=== PATIENT | female | born 1995 | race Caucasian/White ===

== ENCOUNTER 2016-08-24 18:17 | Observation (INO) | payer OTHER ==
[2016-08-24] MEDS ORDERED: FAMOTIDINE 20 MG/2 ML SDV IVP ONE (18:46)
[2016-08-24] MEDS ORDERED: methylPREDNISolone SOD SUCC 125 MG/2 ML VIAL IVP ONE (18:46)
[2016-08-24] MEDS ORDERED: NS 1,000 ML IV ONE ×2 (18:47→21:40)
--- NOTE | 2016-08-24 18:55 | EDPHY ---
H & P Stated Complaint: possible allergic reaction Source: Patient, Family Exam Limitations: No limitations - Personal History LMP (Females 10-55): 1-7 Days Ago Current Tetanus/Diphtheria Vaccine: Yes Current Tetanus Diphtheria and Acellular Pertussis (TDAP): Yes - Medical/Surgical History Hx Asthma: No Hx Chronic Respiratory Disease: No Hx Diabetes: No Hx Cardiac Disease: No Hx Renal Disease: No Hx Cirrhosis: No Hx Alcoholism: No Hx HIV/AIDS: No Hx Splenectomy or Spleen Trauma: No Other PMH: anxiety - Social History Smoking Status: Never smoked HPI/ROS: CHIEF COMPLAINT: Rash, possible allergic reaction HISTORY OF PRESENT ILLNESS: Patient has a painful and pruritic rash all over that started today after taking Bactrim. She has been on Bactrim intermittently this month, reportedly for chronic Lyme disease treatment by a naturopathic physician. She reports having multiple episodes of drug intolerance including vomiting, GI discomfort and mild rash in the past. She has never had this level of rash, which she describes as severe, pruritic and painful. She has no swelling of the lips or tongue. No swelling of the eyes. No difficulty breathing. She does take multiple other supplements from her naturopathic physician. Is also on rifampin intermittently over the past month. No other associated complaints or modifying factors. REVIEW OF SYSTEMS: Ten systems reviewed and are negative unless otherwise noted in the HPI PERTINENT MEDICAL HISTORY: reviewed EXAMINATION General Appearance: Alert, no distress Head: normocephalic, atraumatic Eyes: Pupils equal and round, no conjunctival pallor or injection ENT, Mouth: Mucous membranes moist. airway widely patent. No edema of tongue or lips. No mucosal abnormalities or sloughing of the skin. Uvula midline. Neck: Normal inspection, supple, non-tender Respiratory: Lungs are clear to auscultation. No wheezing, rhonchi or crackles. Cardiovascular: Tachycardic rate. Regular rhythm. Pulses intact distally symmetrically Gastrointestinal: Abdomen is soft and nontender Back: non-tender, no bony abnormalities Neurological: A&O, nonfocal, normal gait Skin: Warm and dry. There is erythematous rash on her cheeks, neck, trunk, back, arms and legs. There is no involvement of the eyes or eyelids. There is no sloughing or desquamation at any site. No abnormality of the oral mucosa. Extremities: Nontender, no pedal edema Psychiatric: Mood and affect normal DIFFERENTIAL DIAGNOSES: Including but not limited to drug allergy, Bactrim allergy, drug intolerance, acute allergic reaction, TEN, Rosas Yaakov syndrome MDM: 6:45 p.m. Possible allergic reaction to Bactrim. The patient does have a rash globally. There is no desquamation or sloughing of the skin at any site. Airway is widely patent. I have ordered Solu-Medrol, Benadryl and Pepcid as well as IV fluid resuscitation. I will continue to monitor. 7:43 p.m. I have re-evaluated the patient. She was feeling minimally better for a while but has started to feel worse. While I was in the room her heart rate was 125 to 140. Her airway remains widely patent. There remains no swelling of the lips or tongue. We are obtaining an EKG and I will administer 1 mg of Ativan. I will consult Dr. De La Garza to evaluate the patient in person. 8:10 p.m. Patient is feeling no better at this time. She remains tachycardic with a heart rate of 130 beats per minute. Ativan has not helped. She still feeling a burning sensation all over. I have ordered a dose of pain medication and will proceed with admission for observation. 8:14 p.m. I discussed the case with Dr. Shafer. He will admit the patient to observation. The patient is comfortable this plan. She is admitted tachycardic but in stable condition. SUPERVISION: Patient was evaluated in conjunction with the supervising physician. Please see their note for details. Patient evaluated by Dr. De La Garza ([facility]) Constitutional: Initial Vital Signs Temperature (C) 97.3 F 08/24/16 18:19 Heart Rate 114 H 08/24/16 18:19 Respiratory Rate 16 08/24/16 18:19 Blood Pressure 127/79 H 08/24/16 18:19 O2 Sat (%) 95 08/24/16 18:19 O2 Delivery Mode Nasal Cannula O2 (L/minute) 2 Allergies/Adverse Reactions: amoxicillin Allergy (Unknown, Verified 07/10/14 12:25) erythromycin base [From E-Mycin] Allergy (Unknown, Verified 07/10/14 12:25) Penicillins Allergy (Unknown, Verified 07/10/14 12:25) Home Medications: Medication Instructions Recorded Herbals/Supplements -Info Only 1 ea PO DAILY 08/24/16 Naproxen Sodium [Aleve 220 MG (*)] 220 - 440 mg PO DAILY PRN 08/24/16 Rifampin [Rifadin 300mg (*)] 300 mg PO BID 08/24/16 Sulfamethox/Tmp 800/160 mg 1 tab PO BID 08/24/16 [Bactrim Ds] diphenhydrAMINE [Benadryl 25 MG 25 - 50 mg PO DAILY PRN 08/24/16 (*)] Medical Decision Making Other Provider: 1954: Evaluated this patient in conjunction with REVA Wolfe. This is a 20 y/o female who presents with a diffuse pruritic rash and throat tightness after taking Bactrim today. She has received 125mg IV Solumedrol, 50mg IV Benadryl, 20mg IV Pepcid, 1mg IV Ativan, and 1L IV NS. She tells me she improved initially after treatment, but she now feels worse. Her rash has improved, but she continues to complain of burning and itching particularly along her legs. Her HR is currently 135. She has some mild tongue swelling and diffuse erythema on exam. No mucous membrane involvement or desquamation. (Regis De La Garza) - Data Points Laboratory Results: Laboratory Results 08/24/16 18:56 08/24/16 18:56 Medications Given: Discontinued Medications Hydrocodone Bitart/Acetaminophen ([place] 5/325) 1 - 2 tab PO Q4HRS PRN PRN Reason: Pain, Moderate Able to Take PO Stop: 09/03/16 21:31 Last Admin: 08/25/16 09:25 Dose: 2 tab Diphenhydramine HCl (Benadryl Injection) 50 mg IVP EDNOW ONE Stop: 08/24/16 18:58 Last Admin: 08/24/16 19:02 Dose: 50 mg Diphenhydramine HCl (Benadryl) 25 mg PO Q6 URBAN Stop: 02/21/17 00:00 Last Admin: 08/25/16 05:46 Dose: 25 mg Famotidine (Pepcid) 20 mg IVP EDNOW ONE Stop: 08/24/16 18:47 Last Admin: 08/24/16 19:02 Dose: 20 mg Fentanyl (Sublimaze) 100 mcg IVP EDNOW ONE Stop: 08/24/16 20:10 Last Admin: 08/24/16 20:15 Dose: 100 mcg Sodium Chloride (Ns) 1,000 mls @ 0 mls/hr IV ONCE ONE PRN Reason: Wide Open Stop: 08/24/16 18:48 Last Admin: 08/24/16 19:02 Dose: 1,000 mls Famotidine/Sodium Chloride (Pepcid 20 Mg (Premix)) 50 mls @ 200 mls/hr IV Q12HRS URBAN Stop: 02/21/17 08:59 Last Admin: 08/25/16 07:59 Dose: 50 mls Sodium Chloride (Ns) 1,000 mls @ 150 mls/hr IV CONT URBAN Stop: 02/20/17 21:44 Last Admin: 08/25/16 05:46 Dose: 1,000 mls Sodium Chloride (Ns) 1,000 mls @ 0 mls/hr IV ONCE ONE PRN Reason: Wide Open Stop: 08/24/16 21:41 Last Admin: 08/24/16 21:55 Dose: 1,000 mls Lorazepam (Ativan Injection) 1 mg IVP EDNOW ONE Stop: 08/24/16 19:44 Last Admin: 08/24/16 19:55 Dose: 1 mg Lorazepam (Ativan Injection) 1 mg IVP Q4HRS PRN PRN Reason: Anxiety, Unable to Take PO Stop: 02/21/17 01:47 Last Admin: 08/25/16 02:10 Dose: 1 mg Methylprednisolone Sodium Succinate (Solu-Medrol) 125 mg IVP EDNOW ONE Stop: 08/24/16 18:47 Last Admin: 08/24/16 19:02 Dose: 125 mg Methylprednisolone Sodium Succinate (Solu-Medrol) 60 mg IVP Q6HRS URBAN Stop: 02/21/17 00:00 Last Admin: 08/25/16 05:46 Dose: 60 mg Morphine Sulfate (Morphine) 2 mg IVP Q4HRS PRN PRN Reason: Pain, Severe Unable to Take PO Stop: 09/03/16 22:57 Last Admin: 08/24/16 23:13 Dose: 2 mg Departure - Departure Disposition: [facility] Clinical Impression: Tachycardia Allergic reaction Qualifiers: Encounter type: initial encounter Qualified Code(s): T78.40XA - Allergy, unspecified, initial encounter Condition: Fair
[2016-08-24 19:14] LABS: % IMMATURE GRANULYOCYTES 2.8 % (0.0-1.1); ABSOLUTE IMMATURE GRANULOCYTES 0.11 10^3/uL (0.00-0.10); ADD DIFF? NO; ADD MORPH? NO; ADD SCAN? NO; ATYPICAL LYMPHOCYTE FLAG 10 (0-99); FRAGMENT RBC FLAG 0 (0-99); HEMATOCRIT 40.1 % (38.0-47.0); HEMOGLOBIN 14.1 g/dL (12.6-16.3); LEFT SHIFT FLG 20 (0-99); LIPEMIA HEMOLYSIS FLAG 90 (0-99); MEAN CELL HEMOGLOBIN 31.4 pg (27.9-34.1); MEAN CELL HEMOGLOBIN CONCENTR. 35.2 g/dL (32.4-36.7); MEAN CELL VOLUME 89.3 fL (81.5-99.8); MEAN PLATELET VOLUME 9.5 fL (8.7-11.7); PLATELET CLUMPS FLAG 0 (0-99); PLATELET COUNT 390 10^3/uL (150-400); RED BLOOD CELL COUNT 4.49 10^6/uL (4.18-5.33); RED CELL DISTRIBUTION WIDTH 11.1 % (11.5-15.2)
[2016-08-24] MEDS ORDERED: LORazepam 2 MG/ML INJ IVP ONE (19:43)
[2016-08-24] MEDS ORDERED: LORazepam 2 MG/ML INJ ONE (19:44)
[2016-08-24 19:45] LABS: ANION GAP 15 mEq/L (8-16); C-REACTIVE PROTEIN 10.5 mg/L (<10.0); CALCIUM 9.5 mg/dL (8.5-10.4); CARBON DIOXIDE 21 mEq/l (22-31); CHLORIDE 101 mEq/L (97-110); CREATININE 0.8 mg/dL (0.6-1.0); GLOMERULAR FILTRATION RATE > 60; GLUCOSE 87 mg/dL (70-100); POTASSIUM 4.1 mEq/L (3.5-5.2); SEDIMENTATION RATE 10 MM/HR (0-20); SODIUM 137 mEq/L (134-144)
--- NOTE | 2016-08-24 19:48 | CPEKG ---
Heart Rate: 131 RR Interval: 458 P-R Interval: 148 QRSD Interval: 78 QT Interval: 308 QTC Interval: 455 P [place]: 63 QRS [place]: 43 T Wave [place]: -69 EKG Severity - ABNORMAL ECG - EKG Impression: SINUS TACHYCARDIA EKG Impression: PROBABLE LEFT ATRIAL ABNORMALITY EKG Impression: ABNORMAL T, CONSIDER ISCHEMIA, DIFFUSE LEADS Electronically Signed By: Regis De La Garza 24-Aug-2016 22:49:54
[2016-08-24] MEDS ORDERED: fentaNYL 100 MCG/2 ML INJ IVP ONE (20:09)
[2016-08-24] MEDS ORDERED: ONDANSETRON DISINTEGRATING 4 MG TAB PO PRN (21:32)
[2016-08-24] MEDS ORDERED: ONDANSETRON 4 MG/2 ML VIAL IVP PRN (21:32)
[2016-08-24] MEDS ORDERED: TEMAZEPAM 15 MG CAP PO PRN (21:32)
[2016-08-24] MEDS: HYDROCODONE/APAP 5/325 TAB PO PRN (21:56)
--- NOTE | 2016-08-24 22:59 | GHP ---
[f rep st] HISTORY AND PHYSICAL DATE OF ADMISSION: 08/24/2016 CHIEF COMPLAINT: Rash. HISTORY OF PRESENT ILLNESS: This is a 20-year-old female who a couple years ago had fairly sudden o nset of joint pain, rashes, extreme fatigue and brain fog. She saw multiple specialists and maxine kempy she was thought to have Lyme disease. She has been treated with rotating antibiotics since then and has actually improved a good amount although not back to baseline. She was started on Bactrim and rifampin several weeks ago but even from the beginning had problems with vomiting and even a lit tle bit of a rash. She has been taking it on and off and tried to take it more consistently the t week. She has developed a rash though that worsened today involved her face. She also has some j oint pain. She has had nausea and vomiting. She also had fevers. She denies any mouth ulcerations or sloughing of her skin. REVIEW OF SYSTEMS: A 10-point review of systems was obtained and, other than stated above, was nega tive. PAST MEDICAL HISTORY: Possible Lyme disease on antibiotics. SOCIAL HISTORY: No smoking or alcohol. Lives with the mother. FAMILY HISTORY: Reviewed. Noncontributory. PHYSICAL EXAMINATION: VITAL SIGNS: Afebrile. Blood pressure is 119/65, heart rate in the 1-teens t o 120s. Oxygen saturation 99% on 2 L. GENERAL: The patient is well developed. No apparent distres s. HEENT: Nonicteric sclerae. Extraocular muscles intact. No oral lesions, although tongue is lit tle bit swollen. There is erythema of her face and some edema. NECK: Supple. No thyromegaly. YAYA GS: Good effort. Clear to auscultation bilaterally. CARDIOVASCULAR: Tachycardic. No murmurs, rubs or gallops. ABDOMEN: Positive bowel sounds. Soft, nontender, nondistended. No hepatosplenomegal y. EXTREMITIES: No clubbing, cyanosis, or edema. I am not seeing a lot in terms of synovitis. NE UROLOGIC: Alert and oriented x3. Moving all 4 extremities equally. PSYCH: Normal affect. LABORATORY DATA: CBC is normal. Beta HCG is negative. Chemistry is negative. ASSESSMENT: This is a 20-year-old female, presenting with allergic reaction, most likely to Bactrim . 1. Allergic reaction. She does have significant rash and some vasodilation and swelling. She does not have any respiratory symptoms. She does have some tachycardia, although her blood pressure rem ains in the normal range. The plan will be to continue her with Solu-Medrol, Pepcid, and Benadryl. We will give her more fluid to see if that might counteract some of the vasodilation. Obviously we will hold her antibiotics. 2. Possible Lyme disease that seems to be getting better with some of the antibiotics. 3. Admission. Patient will be admitted observation status. Case discussed with emergency room diogenes ochoa. /[id number]/MODL
[2016-08-24] MEDS: diphenhydrAMINE 25 MG CAP PO SCH (23:36)
[2016-08-24] MEDS: methylPREDNISolone SOD SUCC 125 MG/2 ML VIAL IVP SCH (23:36)
[2016-08-24] MEDS: NS 1,000 ML IV SCH (23:40)
[2016-08-25] MEDS ORDERED: LORazepam 2 MG/ML INJ IVP PRN (01:48)
[2016-08-25] MEDS: hydrOXYzine HCL 25 MG TAB PO PRN ×2 (02:10→12:29)
[2016-08-25 05:35] LABS: ADD DIFF? YES; ADD MORPH? NO; ADD SCAN? NO; ATYPICAL LYMPHOCYTE FLAG 0 (0-99); FRAGMENT RBC FLAG 0 (0-99); HEMATOCRIT 33.4 % (38.0-47.0); HEMOGLOBIN 11.5 g/dL (12.6-16.3); LEFT SHIFT FLG 50 (0-99); LIPEMIA HEMOLYSIS FLAG 90 (0-99); MEAN CELL HEMOGLOBIN 31.4 pg (27.9-34.1); MEAN CELL HEMOGLOBIN CONCENTR. 34.4 g/dL (32.4-36.7); MEAN CELL VOLUME 91.3 fL (81.5-99.8); MEAN PLATELET VOLUME 9.6 fL (8.7-11.7); PLATELET CLUMPS FLAG 0 (0-99); PLATELET COUNT 322 10^3/uL (150-400); RED BLOOD CELL COUNT 3.66 10^6/uL (4.18-5.33); RED CELL DISTRIBUTION WIDTH 11.2 % (11.5-15.2)
[2016-08-25] MEDS: diphenhydrAMINE 25 MG CAP PO SCH (05:46)
[2016-08-25] MEDS: NS 1,000 ML IV SCH (05:46)
[2016-08-25] MEDS: methylPREDNISolone SOD SUCC 125 MG/2 ML VIAL IVP SCH (05:46)
[2016-08-25 05:58] LABS: ANION GAP 9 mEq/L (8-16); CALCIUM 8.7 mg/dL (8.5-10.4); CARBON DIOXIDE 22 mEq/l (22-31); CHLORIDE 110 mEq/L (97-110); CREATININE 0.7 mg/dL (0.6-1.0); GLOMERULAR FILTRATION RATE > 60; GLUCOSE 124 mg/dL (70-100); POTASSIUM 4.6 mEq/L (3.5-5.2); SODIUM 141 mEq/L (134-144)
[2016-08-25 06:33] LABS: PLATELET ESTIMATE ADEQUATE (ADEQ)
[2016-08-25] MEDS: ACETAMINOPHEN 325 MG TAB PO PRN ×2 (08:00→19:34)
[2016-08-25] MEDS ORDERED: FAMOTIDINE 20 MG/NACL 50 ML IV SCH (09:00)
[2016-08-25] MEDS: HYDROCODONE/APAP 5/325 TAB PO PRN (09:25)
[2016-08-25] MEDS ORDERED: diphenhydrAMINE 25 MG CAP PO PRN (11:58)
[2016-08-25] MEDS ORDERED: HYDROCODONE/APAP 5/325 TAB PO PRN (11:58)
--- NOTE | 2016-08-25 12:03 | HOSPPROG ---
Hospitalist Progress Note Assessment/Plan: 20 yo female admitted for facial rash and generalized malaise and joint pain. She has a long hx of presumed Lyme disease which is being treated by a Milliner Helper and she has been intermittently on various abx. She is currently no on abx and has not had a fever. WBC count is elevated today. Overall, rash has resolved and her malaise and joint pain have improved significantly although still present. #Rash possibly due to Bactrim use: -Resolved #Generalized Pain and arthritis of unclear etiology, elevated CRP -appears to be improving with steroids -unclear what w/u she has Rheum brizuela, but she would likely benefit from a referral #Leukocytosis, likely steroid induced. No signs of active infection #Dehydration: resolved Plan: Per above. Will stop IVF. Change Benadryl to PRN. Decrease steroids. Stop PPI. She is still symptomatic and is not able to be discharged today. Will obtain CRP in a.m. for trending purposes Subjective: Rash has cleared. Still with generalized pain worse at bilateral knees and elbows. No erythema Objective: Vital Signs Temp Pulse Resp BP Pulse Ox 36.6 C 83 20 118/72 96 08/25/16 07:50 08/25/16 07:50 08/25/16 07:50 08/25/16 07:50 08/25/16 07:50 Laboratory Results 08/25/16 04:56 08/25/16 04:56 08/24/16 08/25/16 08/26/16 05:59 05:59 05:59 Intake Total 1450 1900 Balance 1450 1900 - Physical Exam Constitutional: no apparent distress, appears nourished Eyes: PERRL Ears, Nose, Mouth, Throat: moist mucous membranes, hearing normal Cardiovascular: tachycardia, No no murmur, rub, or gallop, No JVD Respiratory: no respiratory distress Gastrointestinal: normoactive bowel sounds Skin: warm, normal color Neurologic: AAOx3 Psychiatric: interacting appropriately, not anxious, not encephalopathic Lymph, Heme, Immunologic: No no cervical LAD ICD10 Worksheet Patient Problems: Problems Problem Status Onset Rash Acute - ICD10 Problem Qualifiers (1) Rash
[2016-08-25] MEDS: predniSONE 20 MG TAB PO SCH (19:33)
[2016-08-25] MEDS ORDERED: methylPREDNISolone SOD SUCC 125 MG/2 ML VIAL IVP SCH (21:00)
[2016-08-26 04:44] VITALS: O2SAT 95
[2016-08-26] MEDS: ACETAMINOPHEN 325 MG TAB PO PRN ×2 (05:01→10:02)
[2016-08-26 05:55] LABS: ANION GAP 10 mEq/L (8-16); C-REACTIVE PROTEIN 59.8 mg/L (<10.0); CALCIUM 8.9 mg/dL (8.5-10.4); CARBON DIOXIDE 23 mEq/l (22-31); CHLORIDE 107 mEq/L (97-110); CREATININE 0.6 mg/dL (0.6-1.0); GLOMERULAR FILTRATION RATE > 60; GLUCOSE 114 mg/dL (70-100); POTASSIUM 4.9 mEq/L (3.5-5.2); SODIUM 140 mEq/L (134-144)
[2016-08-26 05:57] LABS: % IMMATURE GRANULYOCYTES 1.4 % (0.0-1.1); ABSOLUTE IMMATURE GRANULOCYTES 0.19 10^3/uL (0.00-0.10); ADD DIFF? NO; ADD MORPH? NO; ADD SCAN? NO; ATYPICAL LYMPHOCYTE FLAG 0 (0-99); FRAGMENT RBC FLAG 0 (0-99); HEMATOCRIT 35.9 % (38.0-47.0); HEMOGLOBIN 12.4 g/dL (12.6-16.3); LEFT SHIFT FLG 10 (0-99); LIPEMIA HEMOLYSIS FLAG 90 (0-99); MEAN CELL HEMOGLOBIN CONCENTR. 34.5 g/dL (32.4-36.7); MEAN CELL VOLUME 92.5 fL (81.5-99.8); MEAN PLATELET VOLUME 9.7 fL (8.7-11.7); PLATELET CLUMPS FLAG 0 (0-99); PLATELET COUNT 358 10^3/uL (150-400); RED BLOOD CELL COUNT 3.88 10^6/uL (4.18-5.33); RED CELL DISTRIBUTION WIDTH 11.9 % (11.5-15.2)
[2016-08-26 06:47] VITALS: BP 112/48; PULSE 71; RESP 16; TEMP 98.1
[2016-08-26] MEDS: predniSONE 20 MG TAB PO SCH (10:04)
--- NOTE | 2016-08-26 15:09 | GDS ---
[f rep st] DISCHARGE SUMMARY DISCHARGE DIAGNOSES: 1. Adverse reaction to Bactrim. 2. Generalized pain. 3. Leukocytosis. 4. Dehydration. PHYSICAL EXAM: GENERAL: The patient is alert. VITAL SIGNS: Afebrile at 36.7, pulse is 71, respir atory rate 16, blood pressure is 112/48, she is saturating 95% on room air. I have seen and evaluat ed the patient on the day of discharge. HOSPITAL COURSE: The patient is a 20-year-old female, admitted to the hospital secondary to a facia l rash and generalized malaise, with joint pain. She was previously on Bactrim secondary to presume d diagnosis of Lyme disease. She was treated by an osteopathic medicine provider in the outpatient setting. Her Bactrim was discontinued during this hospitalization, and she was treated with Benadry l, as well as prednisone. Her rash has completely resolved. She still has generalized pain with ar thritic symptoms, however, is well enough to be discharged from the hospital. I have recommended th at she follow up in the outpatient setting with infectious disease, as well as a log sawyer. Yandy bulmaro and her mother are both in agreement with this plan. The patient has responded well to prednisone and will continue prednisone 40 mg for another 2 days in the outpatient setting. She was also dehy drated during this hospitalization, and this has resolved with IV fluids. Of note, the patient's CRP was elevated during this hospitalization, and was evaluated preliminarily for trending purposes. This should be used by her primary care physician, as well as other provide rs in the outpatient setting to assist in a further diagnosis. DISCHARGE MEDICATIONS: Please refer to EMR form. I have not discontinued the patient's previously prescribed home medications, with the exception of her Bactrim DS. I reviewed her care and plan of action with her, as well as her mother at length. They are both in agreement with this plan. I spent greater than 35 minutes in the care, coordination, and management of patient's disposition. /[id number]/MODL
== END 2016-08-26 11:41 | disposition home or self-care (01) ==
LOC: F3N 21:05
PROVIDERS: ADMIT Internal Medicine; ATTEND Internal Medicine
DX: L27.0 Generalized skin eruption due to drugs and medicaments taken internally (principal); T37.0X5A Adverse effect of sulfonamides, initial encounter; R52 Pain, unspecified; E86.0 Dehydration; D72.829 Elevated white blood cell count, unspecified; R00.0 Tachycardia, unspecified; A69.20 Lyme disease, unspecified; Z88.0 Allergy status to penicillin; Z88.1 Allergy status to other antibiotic agents
CPT/HCPCS: 93005; 96361; 96374; 96375; 99285; G0378; J1200; J2060; J3010

== ENCOUNTER 2017-07-30 21:05 | Emergency (ER) | payer OTHER ==
--- NOTE | 2017-07-30 21:00 | EDPHY ---
H & P Time Seen by Provider: 07/30/17 21:05 Constitutional: Initial Vital Signs Temperature (C) 36.7 C 07/30/17 21:08 Heart Rate 97 07/30/17 21:08 Respiratory Rate 16 07/30/17 21:08 Blood Pressure 140/92 H 07/30/17 21:08 O2 Sat (%) 98 07/30/17 21:08 O2 Delivery Mode Room Air Allergies/Adverse Reactions: amoxicillin Allergy (Unknown, Verified 07/10/14 12:25) erythromycin base [From E-Mycin] Allergy (Unknown, Verified 07/10/14 12:25) Penicillins Allergy (Unknown, Verified 07/10/14 12:25) Home Medications: Medication Instructions Recorded Herbals/Supplements -Info Only 1 ea PO DAILY 08/24/16 Naproxen Sodium [Aleve 220 MG (*)] 220 - 440 mg PO DAILY PRN 08/24/16 Rifampin [Rifadin 300mg (*)] 300 mg PO BID 08/24/16 diphenhydrAMINE [Benadryl 25 MG 25 - 50 mg PO DAILY PRN 08/24/16 (*)] Acetaminophen [Tylenol 325mg (*)] 650 mg PO Q4HRS PRN #0 tab 08/26/16 diphenhydrAMINE [Benadryl 25 MG 25 mg PO Q6 PRN #0 cap 08/26/16 (*)] hydrOXYzine HCL [hydrOXYzine HCL 25 mg PO Q8HRS PRN #0 tab 08/26/16 (RX)] predniSONE 40 mg PO DAILY #6 tab 08/26/16 Medical Decision Making ED Course/Re-evaluation: CHIEF COMPLAINT: Light sensitivity HISTORY OF PRESENT ILLNESS: The patient is a 21 y/o female arriving via EMS from [place] complaining of light sensitivity onset today. This was proceeded by some lightheadedness and confusion, which have resolved. Her symptoms feel exactly the same as prior episodes, though she has not seen a doctor for these and denies diagnosed history of migraines or ocular migraines. She normally takes homeopathic remedies, eats, and lies in a dark room, but those have not alleviated her symptoms this time. She has an associated mild headache. She denies weakness, paresthesias, fever, neck pain, or other symptoms. REVIEW OF SYSTEMS: A 10 point review of systems was performed and is negative with the exception of the elements mentioned in the history of present illness. PHYSICAL EXAM: HR, BP, O2 Sat, RR. Temp noted General Appearance: Alert, well hydrated, appropriate, and non-toxic appearing. Sitting in a dark room. Head: Atraumatic without scalp tenderness or obvious injury Eyes: Pupils equal, round, reactive to light and accommodation, EOMI, no trauma , no injection. Covering eyes. Ears: Clear bilaterally, no perforation, normal landmarks Nose: Atraumatic, no rhinorrhea, clear. Throat: Mucus membranes moist. Neck: Supple, nontender, no lymphadenopathy. Respiratory: No retractions, no distress, no wheezes, and no accessory muscle use. Lungs are clear to auscultation bilaterally. Cardiovascular: Regular rate and rhythm, no murmurs, rubs, or gallops. Good capillary refill all extremities. Gastrointestinal: Abdomen is soft, nontender, non-distended, no masses, no rebound, no guarding, no peritoneal signs. Musculoskeletal: Normal active ROM of all extremities, atraumatic. Neurological: Alert, appropriate, and interactive. The patient has non-focal cranial nerves, motor, sensory, and cerebellar exam. Skin: No rashes, good turgor, no nodules on palpation. Past medical history: "Chronic lyme disease" takes homeopathic remedies Past surgical history: Noncontributory Family history: Noncontributory Social history: Student. Lives in [place]. Single. DIFFERENTIAL DIAGNOSIS: The differential diagnosis for the patient's headache included but was not limited to subarachnoid hemorrhage, migraine headache, tension headache and infectious causes such as meningitis, pharyngitis and sinusitis. MEDICAL DECISION MAKING: This is a 21 y/o female who presents with gradual onset photophobia this evening that feels the same as prior episodes of photophobia. She has not seen a doctor for these episodes and treats them homeopathically usually. She is neurovascularly intact. Presentation is consistent with ocular migraines. Plan for migraine cocktail with 10mg IV Reglan, 30mg IV Toradol, 10mg IV Decadron, 25mg IV Benadryl, and 1L IV NS. Patient is feeling vastly improved and ready to go home. Neuro exam is normal. I 've advised her to follow up with neurologist for evaluation of possible ocular migraines. Return precautions discussed. She is comfortable with this plan. - Data Points Medications Given: Discontinued Medications Dexamethasone (Decadron Injection) 10 mg IVP EDNOW ONE Stop: 07/30/17 21:10 Last Admin: 07/30/17 21:14 Dose: 10 mg Diphenhydramine HCl (Benadryl Injection) 25 mg IVP EDNOW ONE Stop: 07/30/17 21:10 Last Admin: 07/30/17 21:13 Dose: 25 mg Ketorolac Tromethamine (Toradol) 30 mg IVP EDNOW ONE Stop: 07/30/17 21:10 Last Admin: 07/30/17 21:14 Dose: 30 mg Metoclopramide HCl (Reglan Injection) 10 mg IVP EDNOW ONE Stop: 07/30/17 21:10 Last Admin: 07/30/17 21:14 Dose: 10 mg Departure - Departure Disposition: Home, Routine, Self-Care Clinical Impression: Ocular migraine Condition: Good Instructions: Ocular Migraine (ED) Additional Instructions: Follow up with neurologist this week to establish care. Return to the ED for any worsening of condition. Referrals: Alexis Arellano DO [Doctor of Osteopathy] - As per Instructions Report Scribed for: Regis De La Garza Report Scribed by: Tamiko Hassan Date of Report: 07/30/17 Time of Report: 21:05
[2017-07-30] MEDS ORDERED: KETOROLAC 30 MG/1 ML SDV IVP ONE (21:09)
[2017-07-30] MEDS ORDERED: METOCLOPRAMIDE 10 MG/2 ML VIAL IVP ONE (21:09)
[2017-07-30] MEDS ORDERED: DEXAMETHASONE 10 MG/ML VIAL IVP ONE (21:09)
[2017-07-30 21:49] VITALS: BP 131/81
== END 2017-07-30 21:56 | disposition home or self-care (01) ==
LOC: EDUNIT#
DX: G43.809 Other migraine, not intractable, without status migrainosus (principal)
CPT/HCPCS: 96374; J1100; J1200; J1885; J2765